=== PATIENT | male | born 1945 | race Caucasian/White ===

== ENCOUNTER 2018-02-26 05:54 | Day surgery (SDC) | payer OTHER ==
[~2018-02-26] VITALS: Ht 175.3 cm; Wt 86.2 kg
--- NOTE | 2018-02-26 07:39 | NUR ---
Ambulatory in Day Surgery History, Chart, Medications and Allergies reviewed before start of procedure.Lungs clear T/O to Auscultation. Patient reports completing Chlorhexadine shower X2 prior to admission to hospital.Patient confirms NPO status EXCEPT FOR MIRALAX AT 0400 WITH 10oz OF WATER PER DR PEREIRA INSTRUCTIONS. Agrees with scheduled surgery. ALL BELONGIGNS PLACED UNDER THE BED EZXCEPT FOR GLASSES AND UPPER PLATE PLACED IN THE REOVERY ROOM. PT TOLERATED GROIN PREP WITHOUT DIFFICULTY.
--- NOTE | 2018-02-26 11:44 | NUR ---
Discharge instructions reviewed with patient. Patient verbalizes understanding. Copy given to patient to take homE. Patient up to Ambulate independently. Gait steady. Patient States Post-Procedure ride home has been arranged. Discharged via wheelchair to private car for ride home.
== END 2018-02-26 22:36 | disposition home or self-care (01) ==
LOC: ORSCMMR 05:54 → ORD 07:30 → ORSCMMR 22:36
PROVIDERS: Surgery
PROC: 0YU74JZ Supplement Right Femoral Region with Synthetic Substitute, Percutaneous Endoscopic Approach (ICD-10-PCS; principal; 2018-02-26 07:30)
PROC: 8E0W4CZ Robotic Assisted Procedure of Trunk Region, Percutaneous Endoscopic Approach (ICD-10-PCS; principal; 2018-02-26 07:30)
PROC: 0YUA4JZ Supplement Bilateral Inguinal Region with Synthetic Substitute, Percutaneous Endoscopic Approach (ICD-10-PCS; principal; 2018-02-26 07:30)
DX: K40.20 Bilateral inguinal hernia, without obstruction or gangrene, not specified as recurrent (principal); K41.90 Unilateral femoral hernia, without obstruction or gangrene, not specified as recurrent; Z87.891 Personal history of nicotine dependence
CPT/HCPCS: 49650; 49659; S2900; C1781; J0690; J1100; J1885; J2250; J2405; J3010; J7120

== ENCOUNTER → 2018-04-19 | Outpatient (CLI) | payer OTHER ==
[2018-04-20 14:03] LABS: Stool Occult Bld Immuno 1 Negative (NEGATIVE)
== END ==
LOC: LAB EV 10:45 → EDSTATUS 10-13 17:30 → LAB FUT 10-13 17:30
PROVIDERS: Student in an Organized Health Care Education/Training Program
DX: Z12.11 Encounter for screening for malignant neoplasm of colon (principal); Z12.12 Encounter for screening for malignant neoplasm of rectum
CPT/HCPCS: G0328